=== PATIENT | female | born 1990 | race Caucasian/White ===

== ENCOUNTER 2017-07-21 06:01 | Emergency (ER) | payer BC, OTHER ==
[~2017-07-21] VITALS: Ht 162.6 cm; Wt 80.1 kg
[~2017-07-21 06:01] MED LIST: MUCI600T PO; [UNRECOGNIZED DRUG - CODE]
[2017-07-21 06:08] VITALS: BP 156/107; PULSE 100; RESP 20; TEMP 98.3; O2SAT 94
[2017-07-21 06:34] VITALS: BP 156/107; PULSE 100; RESP 20; TEMP 98.3; O2SAT 94
[2017-07-21 06:47] VITALS: BP 158/95; PULSE 89; RESP 20; O2SAT 95
[2017-07-21] MEDS ORDERED: VENTAER INH (06:47)
[2017-07-21] MEDS ORDERED: ZITHTAB PO (06:47)
[2017-07-21] MEDS ORDERED: MEDR4PAK PO (06:47)
--- NOTE | 2017-07-21 06:48 | PD ---
HPI Chief Complaint: fever Time Seen by Provider: 06:35 Travel History International Travel<30 days: No Contact w/Intl Traveler<30days: No Traveled to known affect area: No History of Present Illness HPI 27 year-old female presents to the emergency department for one week of cough sore throat sinus pressure earache and congestion. Patient is concerned she has the flu. Due to persistent symptoms she decided to come to the emergency room for evaluation. No report of headache neck stiffness chest pain abdominal pain vomiting diarrhea dysuria or flank pain myalgias or arthralgias. Last menses was one month ago and denies . Patient is use [id number] cold preparations without relief of symptoms. PFSH Past Medical History Narrative Medical denies significant past medical history surgical history; admits to occasional alcohol use and tobacco use; nursing notes reviewed Diminished Hearing: No Social History Alcohol Use: Yes (weekends) Tobacco Use: Yes (1/2 PACK PER DAY) Substance Use: No Allergies-Medications (Allergen,Severity, Reaction): Coded Allergies: No Known Allergies (Verified Adverse Reaction, Unknown, 07/21/17) Reported Meds & Prescriptions Reported Meds & Active Scripts Active Ventolin Hfa 18 GM Inh (Albuterol Sulfate) 90 Mcg/Act Aer 2 Puff INH Q4-6H PRN Medrol Dosepak (Methylprednisolone) 4 Mg Dspk 4 Mg PO DIRECTED Per Pharmacist direction Zithromax Z-Lambert (Azithromycin) 250 Mg Dspk 250 Mg PO DIRECTED 500 MG (2 tabs) day 1, then 1 tab days 2-5. Review of Systems Except as stated in HPI: all other systems reviewed are Neg General / Constitutional: Positive: Fever, Chills HENT: Positive: Sore Throat, Congestion, Earache, No: Neck Stiffness, Neck Pain Cardiovascular: No: Chest Pain or Discomfort Respiratory: Positive: Cough, No: Shortness of Breath, Wheezing Gastrointestinal: No: Nausea, Vomiting, Abdominal Pain Genitourinary: No: Frequency, Dysuria, Flank Pain Musculoskeletal: Positive: Myalgias, Arthralgias, No: Weakness Skin: No Rash Neurologic: No: Weakness Psychiatric: No: Anxiety Hematologic/Lymphatic: No: Lymph Node Enlargement Physical Exam Narrative GENERAL: Well-developed well-nourished female in no acute distress no respiratory distress SKIN: Warm and dry. HEAD: Normocephalic. EYES: No scleral icterus. No injection or drainage. ENT: Mucous membranes moist airway is patent posterior pharynx mild erythema without exudate of change or edema NECK: Supple, trachea midline. No JVD or lymphadenopathy. No meningismus no nuchal rigidity CARDIOVASCULAR: Regular rate and rhythm without murmurs, gallops, or rubs. RESPIRATORY: Breath sounds equal bilaterally. No accessory muscle use. GASTROINTESTINAL: Abdomen soft, non-tender, nondistended. MUSCULOSKELETAL: No cyanosis, or edema. BACK: Nontender without obvious deformity. No CVA tenderness. Data Data Last Documented VS Vital Signs Date Time Temp Pulse Resp B/P (MAP) Pulse Ox O2 Delivery O2 Flow Rate FiO2 07/21/17 06:47 89 20 158/95 (116) 95 Room Air 07/21/17 06:34 98.3 Orders Orders Group A Rapid Strep Screen (07/21/17 06:35) Influenzae A/B Antigen (07/21/17 06:35) MDM Medical Decision Making Medical Screen Exam Complete: Yes Emergency Medical Condition: Yes Medical Record Reviewed: Yes Differential Diagnosis Viral syndrome, bronchitis, pneumonia, sinusitis, influenza, pharyngitis Narrative Course Specimens collected for influenza and for rapid strep antigen Patient rating on lab results Diagnosis Primary Impression: Bronchitis Referrals: Administrative Office Manager call for appointment Additional Instructions: Increase fluid hydration Take acetaminophen/Tylenol every 4 hours for fever 100.4F or greater Take ibuprofen/Advil/Motrin every 6-8 hours as needed for fever 100.4F or greater The course of antibiotic as prescribed [place] complete course of steroid taper Use inhaler as needed for wheezing Discontinue tobacco use Return to the emergency department for any concerns or change in condition Med/Other Pt SpecificInfo: Prescription(s) given Scripts Albuterol 18 GM Inh (Ventolin Hfa 18 GM Inh) 90 Mcg/Act Aer 2 PUFF INH Q4-6H Y for SHORTNESS OF BREATH, #1 INHALER 0 Refills Prov: Sasha Khan MD 07/21/17 Methylprednisolone Dosepak (Medrol Dosepak) 4 Mg Dspk 4 MG PO DIRECTED, #1 DSPK 0 Refills Per Pharmacist direction Prov: Sasha Khan MD 07/21/17 Azithromycin (Zithromax Z-Lambert) 250 Mg Dspk 250 MG PO DIRECTED for Infection, #1 DSPK 0 Refills 500 MG (2 tabs) day 1, then 1 tab days 2-5. Prov: Sasha Khan MD 07/21/17 Sasha Khan MD Jul 21, 2017 06:48
== END 2017-07-21 07:57 | disposition home or self-care (01) ==
LOC: PHED 06:01
DX: J40 Bronchitis, not specified as acute or chronic (principal); F17.210 Nicotine dependence, cigarettes, uncomplicated
CPT/HCPCS: 87081; 87804; 87880; 99284

== ENCOUNTER 2017-11-15 14:44 | Emergency (ER) | payer OTHER ==
[~2017-11-15] VITALS: Ht 162.6 cm; Wt 79.0 kg
[~2017-11-15 14:44] MED LIST changes: +MEDR4PAK PO; -MUCI600T PO; +VENTAER INH; +ZITHTAB PO; -[UNRECOGNIZED DRUG - CODE]
[2017-11-15 15:01] VITALS: BP 155/95; PULSE 89; RESP 16; TEMP 98.5; O2SAT 96
[2017-11-15] MEDS ORDERED: ZITHTAB PO (15:20)
[2017-11-15] MEDS ORDERED: BENZ100 PO (15:20)
[2017-11-15] MEDS ORDERED: MEDR4PAK PO (15:20)
--- NOTE | 2017-11-15 15:24 | PD ---
HPI Chief Complaint: Cold / Flu Symptoms Time Seen by Provider: 15:10 Travel History International Travel<30 days: No Contact w/Intl Traveler<30days: No Traveled to known affect area: No History of Present Illness HPI 27-year-old female that presents to the ED for evaluation of cold like symptoms for the past 3 days. No sick contacts. Congestion and cough and sinus pressure. Denies any chest pain or shortness of breath. She does have a history of bronchitis in the past and states that he usually starts like this. She has a history of smoking but no asthma. No COPD. No allergies to medication. Has been taking OTC meds with minimal relief. Main concern for the symptoms are not getting better. Cough is productive. No fevers chills or sweats. No other medical issues. PFSH Past Medical History Diminished Hearing: No ?: Not LMP: 11/03/17 Social History Alcohol Use: Yes (weekends) Tobacco Use: Yes (1/2 PACK PER DAY) Substance Use: No Allergies-Medications (Allergen,Severity, Reaction): Coded Allergies: No Known Allergies (Verified Adverse Reaction, Unknown, 11/15/17) Reported Meds & Prescriptions Reported Meds & Active Scripts Active Tessalon Perles (Benzonatate) 100 Mg Cap 100 Mg PO TID PRN Zithromax Z-Lambert (Azithromycin) 250 Mg Dspk 250 Mg PO DIRECTED 500 MG (2 tabs) day 1, then 1 tab days 2-5. Medrol Dosepak (Methylprednisolone) 4 Mg Dspk 4 Mg PO DIRECTED Per Pharmacist direction Review of Systems Except as stated in HPI: all other systems reviewed are Neg Physical Exam Narrative GENERAL: Well-nourished, well-developed patient in no apparent distress. SKIN: Warm and dry. HEAD: Atraumatic. Normocephalic. EYES: Pupils equal and round reactive to light and accommodation. No scleral icterus. No injection or drainage. ENT: No nasal bleeding or discharge. Mucous membranes pink and moist. TMs are clear with no sign of infection or perforation. No mastoid tenderness. Ear canals are intact bilaterally. No lymphadenopathy. Nostril mucosa is red and moist with clear mucus noted. No sinus tenderness to palpation noted. Tonsils are not enlarged or swollen. No ulvua Deviation. Tongue is midline. NECK: Trachea midline. No JVD. No meningeal signs noted CARDIOVASCULAR: Regular rate and rhythm. RESPIRATORY: No accessory muscle use. Clear to auscultation. Breath sounds equal bilaterally. GASTROINTESTINAL: Abdomen soft, non-tender, nondistended. Hepatic and splenic margins not palpable. MUSCULOSKELETAL: Extremities without clubbing, cyanosis, or edema. No obvious deformities. NEUROLOGICAL: Awake and alert. No obvious cranial nerve deficits. Motor grossly within normal limits. Five out of 5 muscle strength in the arms and legs. Normal speech. PSYCHIATRIC: Appropriate mood and affect; insight and judgment normal. Data Data Last Documented VS Vital Signs Date Time Temp Pulse Resp B/P (MAP) Pulse Ox O2 Delivery O2 Flow Rate FiO2 11/15/17 15:01 98.5 89 16 155/95 (115) 96 Orders Orders Ed Discharge Order (11/15/17 15:21) [facility] Medical Decision Making Medical Screen Exam Complete: Yes Emergency Medical Condition: Yes Medical Record Reviewed: Yes Differential Diagnosis Bronchitis versus sinusitis versus URI Narrative Course 27-year-old female that presents to the ED for evaluation of cold like symptoms. Patient was properly examined and was found to have signs and symptoms consistent with appears to be URI likely possible bronchitis. Will treat with azithromycin, Tessalon Perles and Medrol Dosepak. Told to follow with PCP. See ED worsening symptoms. Take OTC meds as needed. Diagnosis Primary Impression: URI (upper respiratory infection) Qualified Codes: J06.9 - Acute upper respiratory infection, unspecified Additional Impression: Bronchitis Patient Instructions: General Instructions Additional Instructions: Motrin and Tylenol for pain and fever. You can use [id number] antihistamine as well as well as Mucinex as needed for runny nose and congestion. Cough drops for cough as needed. Drink plenty of fluids. Follow-up with PCP. See ED for worsening symptoms. Med/Other Pt SpecificInfo: Prescription(s) given Scripts Benzonatate (Tessalon Perles) 100 Mg Cap 100 MG PO TID Y for COUGH, #20 CAP 0 Refills Prov: Lee Gan MD 11/15/17 Azithromycin (Zithromax Z-Lambert) 250 Mg Dspk 250 MG PO DIRECTED for Infection, #1 DSPK 0 Refills 500 MG (2 tabs) day 1, then 1 tab days 2-5. Prov: Lee Gan MD 11/15/17 Methylprednisolone Dosepak (Medrol Dosepak) 4 Mg Dspk 4 MG PO DIRECTED, #1 DSPK 0 Refills Per Pharmacist direction Prov: Lee Gan MD 11/15/17 Disposition: 01 DISCHARGE HOME Condition: Stable Junior [place] Nov 15, 2017 15:24
== END 2017-11-15 15:23 | disposition home or self-care (01) ==
LOC: PHEFT 14:44
DX: J06.9 Acute upper respiratory infection, unspecified (principal); J40 Bronchitis, not specified as acute or chronic; F17.200 Nicotine dependence, unspecified, uncomplicated
CPT/HCPCS: 99283